=== PATIENT | male | born 1950 | race Caucasian/White ===

== ENCOUNTER 2016-09-27 19:29 | Inpatient (IN) | payer OTHER ==
[~2016-09-27] VITALS: Ht 177.8 cm; Wt 145.2 kg
[~2016-09-27 19:29] MED LIST: GAB400C PO; MELO-61 PO; METO-5 PO; NOR10T PO
[2016-09-27] MEDS ORDERED: cefTRIAXone 1GM/50ML D5W 50 ML IV ONE (21:15)
[2016-09-27 21:55] LABS: Basophils # (auto) 0.1 uL; Basophils % (auto) 1.2 % (0.0-2.0); Eosinophils # (auto) 0.2 uL; Eosinophils % (auto) 3.2 % (0.0-7.0); Hemoglobin 13.1 g/dL (13.5-17.5); Lymphocytes # (auto) 1.3 uL; Lymphocytes % (auto) 22.3 % (10.0-50.0); Mean Corpuscular Hemoglobin 32.2 pg (28.0-32.0); Mean Corpuscular Hgb Conc. 33.7 g/dL (32.0-36.0); Mean Corpuscular Volume 95.5 fL (80.0-100.0); Mean Platelet Volume 9.4 fL (7.4-10.4); Monocytes # (auto) 0.4 uL; Monocytes % (auto) 7.6 % (0.0-12.0); Neutrophils # (auto) 3.7 uL; Neutrophils % (auto) 65.7 % (37.0-80.0); Platelet Count (auto) 99 10^3/uL (140-450); White Blood Cell 5.7 10^3/uL (4.4-10.8)
[2016-09-27 22:09] LABS: INR 0.99 (0.9-1.15); Partial Thromboplastin Time 25.2 sec (22.64-33.71); Prothrombin Time 10.7 sec (9.37-12.3)
[2016-09-27 22:22] LABS: Albumin 3.2 g/dL (3.4-5.0); BUN/Creatinine Ratio 16.3; Calcium 8.2 mg/dL (8.5-10.1); Magnesium 1.3 mg/dL (1.6-2.6); Potassium 3.1 mmol/L (3.5-5.1)
[2016-09-27 22:25] LABS: Bilirubin, Total 0.3 mg/dL (0.2-1.0); Lactic Acid w/Reflex 3.5 mmol/L (0.4-2.0); Total Protein 6.8 g/dL (6.4-8.2)
[2016-09-27 22:46] LABS: REFLEX LACTIC ACID YES OR NO YES
[2016-09-27] MEDS ORDERED: TEMAZEPAM 15 MG CAP PO PRN (23:00)
[2016-09-27] MEDS ORDERED: DEXTROSE (50%) 50ML SYRG IV PRN (23:00)
[2016-09-27] MEDS ORDERED: ACETAMINOPHEN 325 MG TAB PO PRN (23:00)
[2016-09-27] MEDS ORDERED: HYDROcodone-ACET 5/325MG TAB PO PRN (23:00)
[2016-09-27] MEDS ORDERED: ONDANSETRON HCL 4 MG/2 ML VIAL IV PRN (23:00)
[2016-09-27] MEDS ORDERED: VANCOMYCIN PER PHARMACY 0 MG IV SCH (23:00)
[2016-09-27 23:02] LABS: B-Type Natriuretic Peptide 31.5 pg/mL (0-100); Temperature: 21.4 C (20.0-25.0)
[2016-09-27] MEDS ORDERED: POTASSIUM CHL 20 Meq TABLET PO ONE (23:15)
[2016-09-27] MEDS: MAGNESIUM SULFATE 1GM/100ML 100 ML IV SCH (23:15)
[2016-09-28] MEDS: MAGNESIUM SULFATE 1GM/100ML 100 ML IV SCH ×2 (00:15→00:36)
[2016-09-28] MEDS: SODIUM CHLORIDE 0.9% 1,000 ML IV SCH ×2 (00:35→02:25)
[2016-09-28] MEDS: InsuLIN REG 1unit/0.01ml Soln (100units/ml) SC SCH ×4 (00:53→17:54)
[2016-09-28] MEDS ORDERED: VANCOMYCIN 1GM/250ML D5W 250 ML IV ONE (01:00)
[2016-09-28 03:52] VITALS: BP 147/78
[2016-09-28 05:00] VITALS: BP 116/63
[2016-09-28] MEDS: FUROSEMIDE 40 MG TAB PO SCH ×2 (05:29→17:55)
[2016-09-28] MEDS: ACCU-CHEK COMFORT CURVE STRIP VI SCH ×4 (05:30→17:42)
[2016-09-28 07:31] LABS: Basophils # (auto) 0 uL; Basophils % (auto) 0.7 % (0.0-2.0); Eosinophils # (auto) 0.1 uL; Eosinophils % (auto) 2.9 % (0.0-7.0); Hematocrit 38.2 % (41.0-53.0); Hemoglobin 13.2 g/dL (13.5-17.5); Lymphocytes # (auto) 0.9 uL; Lymphocytes % (auto) 16.4 % (10.0-50.0); Mean Corpuscular Hemoglobin 32.7 pg (28.0-32.0); Mean Corpuscular Hgb Conc. 34.5 g/dL (32.0-36.0); Mean Corpuscular Volume 94.8 fL (80.0-100.0); Mean Platelet Volume 9.1 fL (7.4-10.4); Monocytes # (auto) 0.5 uL; Monocytes % (auto) 8.8 % (0.0-12.0); Neutrophils # (auto) 3.7 uL; Neutrophils % (auto) 71.2 % (37.0-80.0); Platelet Count (auto) 86 10^3/uL (140-450); Red Cell Distribution Width 17.7 % (11.6-16.0); White Blood Cell 5.2 10^3/uL (4.4-10.8)
[2016-09-28 08:01] LABS: Albumin 2.7 g/dL (3.4-5.0); BUN/Creatinine Ratio 17.1; Bilirubin, Total 0.5 mg/dL (0.2-1.0); Calcium 8.1 mg/dL (8.5-10.1); Potassium 3.2 mmol/L (3.5-5.1); Total Protein 6.3 g/dL (6.4-8.2)
[2016-09-28 09:00] VITALS: BP 140/91
[2016-09-28] MEDS: cefTRIAXone 1GM/50ML D5W 50 ML IV SCH (10:16)
[2016-09-28] MEDS: METOPROLOL SUCCINATE XL 50 MG TAB PO SCH (10:18)
[2016-09-28] MEDS: FAMOTIDINE 20 MG TAB PO SCH ×2 (10:18→21:38)
[2016-09-28] MEDS: VANCOMYCIN 1GM/250ML D5W 250 ML IV SCH ×2 (10:19→17:55)
[2016-09-28] MEDS: ENOXAPARIN SOD 40 MG/0.4 ML SYRINGE SC SCH (10:19)
[2016-09-28 13:00] VITALS: BP 129/67
[2016-09-28 17:00] VITALS: BP 117/53
[2016-09-28] MEDS ORDERED: POTASSIUM CHL 20 Meq TABLET PO ONE (17:00)
[2016-09-28] MEDS: metFORMIN HYDROCHLORIDE 500 MG TAB PO SCH (17:55)
[2016-09-28] MEDS: MORPHINE SULF INJ 2 MG/ML SYRINGE 1ML IV PRN (20:56)
[2016-09-28] MEDS: ATORVASTATIN 20 MG TAB PO SCH (21:38)
[2016-09-28] MEDS: NYSTATIN TOPICAL POWDER 15GM TOP SCH (21:38)
[2016-09-28 22:00] VITALS: BP 112/66
[2016-09-28] MEDS ORDERED: PATIENTS OWN MEDICATION (simvastatin 20 MG) PO SCH ×2 (22:00)
[2016-09-29] MEDS: InsuLIN REG 1unit/0.01ml Soln (100units/ml) SC SCH ×5 (00:01→23:42)
[2016-09-29] MEDS: VANCOMYCIN 1GM/250ML D5W 250 ML IV SCH ×3 (01:35→18:18)
[2016-09-29] MEDS: MORPHINE SULF INJ 2 MG/ML SYRINGE 1ML IV PRN ×3 (04:10→16:53)
[2016-09-29 05:00] VITALS: BP 127/66
[2016-09-29] MEDS: ACCU-CHEK COMFORT CURVE STRIP VI SCH ×5 (06:08→23:42)
[2016-09-29] MEDS: FUROSEMIDE 40 MG TAB PO SCH ×2 (06:09→18:19)
[2016-09-29] MEDS: metFORMIN HYDROCHLORIDE 500 MG TAB PO SCH ×2 (06:15→18:18)
[2016-09-29 08:00] VITALS: BP 129/72
[2016-09-29 09:00] VITALS: BP 129/72
[2016-09-29] MEDS: cefTRIAXone 1GM/50ML D5W 50 ML IV SCH (10:03)
[2016-09-29] MEDS: ENOXAPARIN SOD 40 MG/0.4 ML SYRINGE SC SCH (10:04)
[2016-09-29] MEDS: METOPROLOL SUCCINATE XL 50 MG TAB PO SCH (10:04)
[2016-09-29] MEDS: FAMOTIDINE 20 MG TAB PO SCH ×2 (10:04→22:10)
[2016-09-29] MEDS: NYSTATIN TOPICAL POWDER 15GM TOP SCH ×2 (10:05→22:10)
[2016-09-29 10:06] LABS: BUN/Creatinine Ratio 10.7; Calcium 7.6 mg/dL (8.5-10.1); Potassium 3.2 mmol/L (3.5-5.1)
[2016-09-29 10:06] LABS: Basophils # (auto) 0 uL; Basophils % (auto) 0.5 % (0.0-2.0); Eosinophils # (auto) 0.1 uL; Eosinophils % (auto) 3.1 % (0.0-7.0); Hematocrit 37.3 % (41.0-53.0); Hemoglobin 12.7 g/dL (13.5-17.5); Lymphocytes # (auto) 0.9 uL; Lymphocytes % (auto) 19.3 % (10.0-50.0); Mean Corpuscular Hemoglobin 32.4 pg (28.0-32.0); Mean Corpuscular Volume 95.2 fL (80.0-100.0); Mean Platelet Volume 9.4 fL (7.4-10.4); Monocytes # (auto) 0.6 uL; Monocytes % (auto) 13.7 % (0.0-12.0); Neutrophils # (auto) 2.9 uL; Neutrophils % (auto) 63.4 % (37.0-80.0); Platelet Count (auto) 81 10^3/uL (140-450); Red Cell Distribution Width 17.7 % (11.6-16.0); White Blood Cell 4.6 10^3/uL (4.4-10.8)
[2016-09-29] MEDS: SODIUM CHLORIDE 0.9% 1,000 ML IV SCH ×2 (10:14→22:27)
[2016-09-29 12:32] VITALS: BP 135/74
[2016-09-29 16:38] VITALS: BP 130/75
[2016-09-29 22:00] VITALS: BP 119/68
[2016-09-29] MEDS: ATORVASTATIN 20 MG TAB PO SCH (22:10)
[2016-09-30] MEDS: VANCOMYCIN 1GM/250ML D5W 250 ML IV SCH ×3 (01:31→18:01)
[2016-09-30 05:00] VITALS: BP 133/75
[2016-09-30] MEDS: FUROSEMIDE 40 MG TAB PO SCH ×2 (06:19→18:05)
[2016-09-30] MEDS: InsuLIN REG 1unit/0.01ml Soln (100units/ml) SC SCH ×4 (06:20→23:44)
[2016-09-30] MEDS: metFORMIN HYDROCHLORIDE 500 MG TAB PO SCH ×2 (06:20→18:04)
[2016-09-30] MEDS: ACCU-CHEK COMFORT CURVE STRIP VI SCH ×4 (06:20→23:44)
[2016-09-30 07:41] VITALS: BP 136/80
[2016-09-30 08:00] VITALS: BP 136/80
[2016-09-30] MEDS: FAMOTIDINE 20 MG TAB PO SCH ×2 (09:06→21:21)
[2016-09-30] MEDS: cefTRIAXone 1GM/50ML D5W 50 ML IV SCH (09:06)
[2016-09-30] MEDS: ENOXAPARIN SOD 40 MG/0.4 ML SYRINGE SC SCH (09:06)
[2016-09-30] MEDS: METOPROLOL SUCCINATE XL 50 MG TAB PO SCH (09:07)
[2016-09-30] MEDS: MORPHINE SULF INJ 2 MG/ML SYRINGE 1ML IV PRN ×3 (09:08→21:21)
[2016-09-30] MEDS: NYSTATIN TOPICAL POWDER 15GM TOP SCH ×2 (11:55→21:21)
[2016-09-30 12:26] VITALS: BP 112/53
[2016-09-30 16:45] VITALS: BP 137/71
[2016-09-30] MEDS: SODIUM CHLORIDE 0.9% 1,000 ML IV SCH (18:02)
[2016-09-30] MEDS: ATORVASTATIN 20 MG TAB PO SCH (21:20)
[2016-09-30 22:00] VITALS: BP 138/73
[2016-10-01] MEDS: VANCOMYCIN 1GM/250ML D5W 250 ML IV SCH ×3 (01:27→17:55)
[2016-10-01] MEDS: ACCU-CHEK COMFORT CURVE STRIP VI SCH ×3 (05:28→18:10)
[2016-10-01] MEDS: FUROSEMIDE 40 MG TAB PO SCH ×2 (05:28→18:09)
[2016-10-01] MEDS: MORPHINE SULF INJ 2 MG/ML SYRINGE 1ML IV PRN ×3 (05:37→20:55)
[2016-10-01] MEDS: InsuLIN REG 1unit/0.01ml Soln (100units/ml) SC SCH ×3 (05:54→18:10)
[2016-10-01 05:56] VITALS: BP 134/82
[2016-10-01] MEDS: metFORMIN HYDROCHLORIDE 500 MG TAB PO SCH ×2 (06:31→18:08)
[2016-10-01 08:00] VITALS: BP_SYST 134; BP_DIAS 73; BP_DIAS 75
[2016-10-01] MEDS: cefTRIAXone 1GM/50ML D5W 50 ML IV SCH (09:06)
[2016-10-01] MEDS: ENOXAPARIN SOD 40 MG/0.4 ML SYRINGE SC SCH (10:28)
[2016-10-01] MEDS: FAMOTIDINE 20 MG TAB PO SCH ×2 (10:29→22:18)
[2016-10-01] MEDS: SODIUM CHLORIDE 0.9% 1,000 ML IV SCH (10:30)
[2016-10-01] MEDS: METOPROLOL SUCCINATE XL 50 MG TAB PO SCH (10:30)
[2016-10-01] MEDS: NYSTATIN TOPICAL POWDER 15GM TOP SCH ×2 (10:55→22:18)
[2016-10-01 12:00] VITALS: BP 137/74
[2016-10-01 15:51] VITALS: BP 136/70
[2016-10-01 17:00] VITALS: BP 127/51
[2016-10-01 22:00] VITALS: BP 156/72
[2016-10-01] MEDS: ATORVASTATIN 20 MG TAB PO SCH (22:18)
[2016-10-02] MEDS: MORPHINE SULF INJ 2 MG/ML SYRINGE 1ML IV PRN ×2 (01:24→05:36)
[2016-10-02] MEDS: VANCOMYCIN 1GM/250ML D5W 250 ML IV SCH ×2 (01:25→09:45)
[2016-10-02] MEDS: SODIUM CHLORIDE 0.9% 1,000 ML IV SCH (02:57)
[2016-10-02 05:00] VITALS: BP 133/77
[2016-10-02] MEDS: FUROSEMIDE 40 MG TAB PO SCH (05:22)
[2016-10-02] MEDS: ACCU-CHEK COMFORT CURVE STRIP VI SCH ×2 (05:22)
[2016-10-02] MEDS: InsuLIN REG 1unit/0.01ml Soln (100units/ml) SC SCH ×2 (05:35)
[2016-10-02] MEDS: metFORMIN HYDROCHLORIDE 500 MG TAB PO SCH (05:52)
[2016-10-02 08:00] VITALS: BP 117/61
[2016-10-02] MEDS: cefTRIAXone 1GM/50ML D5W 50 ML IV SCH (08:32)
[2016-10-02] MEDS ORDERED: MULTIPLE VITAMIN TAB PO SCH (10:00)
[2016-10-02] MEDS: NYSTATIN TOPICAL POWDER 15GM TOP SCH (10:00)
[2016-10-02] MEDS ORDERED: ASCORBIC ACID 500 MG TAB PO SCH (10:00)
[2016-10-02] MEDS: METOPROLOL SUCCINATE XL 50 MG TAB PO SCH (10:51)
[2016-10-02] MEDS: FAMOTIDINE 20 MG TAB PO SCH (10:51)
[2016-10-02] MEDS: ENOXAPARIN SOD 40 MG/0.4 ML SYRINGE SC SCH (10:52)
[2016-10-02 11:16] VITALS: BP 117/61
== END 2016-10-02 11:50 | DRG 383 ==
LOC: EDSEX 19:29 → EDBD 19:29 → ER 19:35 → OVERFLOW 19:36 → EAST 09-28 01:16
PROVIDERS: ADMIT Internal Medicine; ATTEND Internal Medicine
DX: L03.116 Cellulitis of left lower limb (principal); I11.0 Hypertensive heart disease with heart failure; E44.0 Moderate protein-calorie malnutrition; I50.9 Heart failure, unspecified; E11.65 Type 2 diabetes mellitus with hyperglycemia; Z68.42 Body mass index [BMI] 45.0-49.9, adult; L03.115 Cellulitis of right lower limb; E83.42 Hypomagnesemia; E66.01 Morbid (severe) obesity due to excess calories; E78.5 Hyperlipidemia, unspecified; E87.6 Hypokalemia; F17.210 Nicotine dependence, cigarettes, uncomplicated; F32.9 Major depressive disorder, single episode, unspecified; I73.9 Peripheral vascular disease, unspecified; I87.2 Venous insufficiency (chronic) (peripheral); I87.8 Other specified disorders of veins; B95.62 Methicillin resistant Staphylococcus aureus infection as the cause of diseases classified elsewhere; J44.9 Chronic obstructive pulmonary disease, unspecified; Z82.49 Family history of ischemic heart disease and other diseases of the circulatory system; Z83.3 Family history of diabetes mellitus
CPT/HCPCS: 36415; 71010; 73630; 80048; 80053; 80202; 82962; 83036; 83605; 83735; 83880; 85025; 85610; 85730; 87040; 87081; 87493; 93005; 93923; 93970; 94761; 96365; 96367; J0696; J1815